=== PATIENT | male | born 1985 | race Caucasian/White ===

== ENCOUNTER 2017-05-01 21:16 | Emergency (ER) | payer BC ==
[2017-05-01 21:45] VITALS: BP 163/83
[2017-05-01] MEDS ORDERED: Ibuprofen 800 MG Tab PO ONE (23:18)
--- NOTE | 2017-05-01 23:44 | EDM.PDOC ---
ED HPI GENERAL MEDICAL PROBLEM - General Chief Complaint: Genitourinary Problem Stated Complaint: TESTICULAR PAIN BLOOD IN STOOL PAIN IN URINATION Time Seen by Provider: 05/01/17 22:05 Source of Information: Reports: Patient History Limitations: Reports: No Limitations - History of Present Illness INITIAL COMMENTS - FREE TEXT/NARRATIVE: The patient says this all started about 1pm today. He had right testicle pain and then he had burning with urination. He is not voiding all the way. He has no discharge. He also has a fever and chills. He has body aches. He has not been sexually active for 6 months. He denies any ranches. He has no abdominal pain, nausea or vomiting. He recently started the Sai's diet. He also had blood in his stool today. He has no rectal pain. Onset: Gradual Duration: Hour(s): Location: Reports: Other (Right testicle) Quality: Reports: Sharp Severity: Moderate Improves with: Reports: None Worsens with: Reports: Movement Associated Symptoms: Reports: Fever/Chills. Denies: Confusion, Chest Pain, Cough, Nausea/Vomiting, Shortness of Breath - Related Data Allergies Allergy/AdvReac Type Severity Reaction Status Date / Time morphine Allergy Nausea Verified 05/01/17 21:45 Home Meds: Home Meds Nitrofurantoin Rowan/Macrocryst [Macrobid] 100 mg PO BID #10 cap 05/02/17 [Rx] Past Medical History - Past Health History Medical/Surgical History: Denies Medical/Surgical History Cardiovascular History: Reports: High Cholesterol - Past Surgical History GI Surgical History: Reports: Appendectomy Social & Family History - Tobacco Use Smoking Status *Q: Unknown Ever Smoked Years of Tobacco use: 6 Packs/Tins Daily: 1 - Caffeine Use Caffeine Use: Reports: Energy Drinks, Soda - Recreational Drug Use Recreational Drug Use: No ED ROS GENERAL - Review of Systems Review Of Systems: See Below Constitutional: Reports: Fever, Chills HEENT: Reports: No Symptoms Respiratory: Reports: No Symptoms Cardiovascular: Reports: No Symptoms Endocrine: Reports: No Symptoms GI/Abdominal: Reports: No Symptoms : Reports: Dysuria, Other (Right testicle pain) Musculoskeletal: Reports: Muscle Pain Skin: Reports: No Symptoms ED EXAM, GI/ABD - Physical Exam Exam: See Below Exam Limited By: No Limitations General Appearance: Alert, No Apparent Distress Ears: Normal External Exam Nose: Normal Inspection Head: Atraumatic, Normocephalic Neck: Normal Inspection Respiratory/Chest: No Respiratory Distress, Lungs Clear, Normal Breath Sounds Cardiovascular: Regular Rate, Rhythm, No Edema, No Murmur GI/Abdominal Exam: Soft, Non-Tender, No Organomegaly, No Mass (Male) Exam: Other (Pain upon palpation and edema to the right testicle and above the testicle) Rectal (Males) Exam: Other (No active bleeding. There is some small external hemorrhoids) Course - Vital Signs Last Recorded V/S: Last Vital Signs Temp 100.3 F 05/01/17 21:39 Pulse 126 H 05/01/17 21:39 Resp 18 05/01/17 21:39 BP 163/83 H 05/01/17 21:39 Pulse Ox 100 05/01/17 21:39 - Orders/Labs/Meds Orders: Active Orders 24 hr Category Date Time Status Scrotum and Contents [US] Stat Exams 05/01/17 22:14 Taken CULTURE URINE [] Stat Lab 05/01/17 22:05 Received Labs: Laboratory Tests 05/01/17 05/01/17 05/01/17 Range/Units 22:00 22:30 22:30 WBC 12.09 H (4.23-9.07) K/mm3 RBC 5.24 (4.63-6.08) M/mm3 Hgb 16.5 (13.7-17.5) gm/L Hct 47.2 (40.1-51.0) % MCV 90.1 (79.0-92.2) fl MCH 31.5 (25.7-32.2) pg MCHC 35.0 (32.2-35.5) g/dl RDW Std Deviation 42.3 (35.1-43.9) fL Plt Count 176 (163-337) K/mm3 MPV 10.8 (9.4-12.3) fl Neut % (Auto) 79.8 H (34.0-67.9) % Lymph % (Auto) 13.2 L (21.8-53.1) % Rowan % (Auto) 5.8 (5.3-12.2) % Eos % (Auto) 0.9 (0.8-7.0) Baso % (Auto) 0.2 (0.1-1.2) % Neut # (Auto) 9.65 H (1.78-5.38) K/mm3 Lymph # (Auto) 1.59 (1.32-3.57) K/mm3 Rowan # (Auto) 0.70 (0.30-0.82) K/mm3 Eos # (Auto) 0.11 (0.04-0.54) K/mm3 Baso # (Auto) 0.03 (0.01-0.08) K/mm3 Sodium 138 (136-145) mEq/L Potassium 3.6 (3.5-5.1) mEq/L Chloride 101 (98-107) mEq/L Carbon Dioxide 26 (21-32) mEq/L Anion Gap 14.6 (5-15) BUN 26 H (7-18) mg/dL Creatinine 1.1 (0.7-1.3) mg/dL Est Cr Clr Drug Dosing 131.32 mL/min Estimated GFR (MDRD) > 60 (>60) mL/min BUN/Creatinine Ratio 23.6 H (14-18) Glucose 104 (74-106) mg/dL Calcium 9.0 (8.5-10.1) mg/dL Total Bilirubin 0.4 (0.2-1.0) mg/dL AST 24 (15-37) U/L ALT 39 (16-63) U/L Alkaline Phosphatase 67 (46-116) U/L Total Protein 7.8 (6.4-8.2) g/dl Albumin 3.8 (3.4-5.0) g/dl Globulin 4.0 gm/dL Albumin/Globulin Ratio 1.0 (1-2) Urine Color Yellow (Yellow) Urine Appearance Slt cloudy H (Clear) Urine pH 6.5 (5.0-8.0) Ur Specific [place] 1.015 (1.005-1.030) Urine Protein Trace H (Negative) Urine Glucose (UA) Negative (Negative) Urine Ketones 1+ H (Negative) Urine Occult Blood 3+ H (Negative) Urine Nitrite Negative (Negative) Urine Bilirubin Negative (Negative) Urine Urobilinogen 0.2 (0.2-1.0) Ur Leukocyte Esterase 3+ H (Negative) Urine RBC >100 H (0-5) /hpf Urine WBC >100 H (0-5) /hpf Urine WBC Clumps Few (NOT SEEN) /hpf Ur Epithelial Cells 0-5 (0-5) /hpf Urine Bacteria Moderate H (FEW) /hpf Urine Mucus Not seen (FEW) /hpf Meds: Medications Discontinued Medications Generic Name Dose Route Start Last Admin Trade Name Donavan PRN Reason Stop Dose Admin Ibuprofen 800 mg 05/01/17 23:18 05/01/17 23:34 Motrin PO 05/01/17 23:19 800 mg ONETIME ONE Administration - Re-Assessments/Exams Free Text/Narrative Re-Assessment/Exam: 05/01/17 23:46 I ordered a UA, labs, and an US of his scrotum. 05/01/17 23:46 His WBC was elevated at 12.09. His CMP looks good. His UA shows a UTI. I am concerned he may have epididimytis. I am waiting for the US report. I gave him some motrin for the fever and pain. 05/02/17 00:19 His US shows nothing acute. I will get him on some macrobid. Departure - Departure Time of Disposition: 00:20 Disposition: Home, Self-Care 01 Condition: Good Clinical Impression: UTI, Urinary tract infectious disease - Discharge Information Prescriptions: Nitrofurantoin Rowan/Macrocryst [Macrobid] 100 mg PO BID #10 cap Referrals: Lanette Jiménez PA [[facility] [employer] [facility]] - 1 Week Forms: ED Department Discharge, ED Return to Work/School Form Additional Instructions: Take the macrobid 2 times per day for 5 days. Drink plenty of fluids. Take tylenol or motrin for any fever. - My Orders Last 24 Hours: My Active Orders 05/01/17 22:05 CULTURE URINE [RM] Stat 05/01/17 22:14 Scrotum and Contents [US] Stat - Assessment/Plan Last 24 Hours: My Active Orders 05/01/17 22:05 CULTURE URINE [RM] Stat 05/01/17 22:14 Scrotum and Contents [US] Stat
--- NOTE | 2017-05-02 08:12 | US ---
Testicular ultrasound: Multiple real-time images of the testicles were obtained. Comparison: No previous study. Testicles have a homogeneous ultrasound appearance. No intratesticular abnormality is identified. Both venous and arterial blood flow are seen within both testicles. Small epididymal cyst noted on both sides measuring about 5 mm. Small left-sided hydrocele is noted. Slightly prominent tubular vessels noted on the left side suspicious for small varicocele. Measurements: Right testicle: 4.1 x 2.5 x 3.7 cm Left testicle: 5.0 x 3.0 x 4.1 cm Impression: 1. Probable small varicocele on the left side. 2. No testicular abnormality is seen. 3. Other incidental findings as noted above. Diagnostic code #2 I agree with preliminary report issued by [facility] (ad report finalized on 05/02/17, 12:49 AM Central Time)
== END 2017-05-02 00:26 | disposition home or self-care (01) ==
LOC: JD.ED 21:16
DX: N39.0 Urinary tract infection, site not specified (principal); B96.20 Unspecified Escherichia coli [E. coli] as the cause of diseases classified elsewhere; E78.00 Pure hypercholesterolemia, unspecified; Z90.49 Acquired absence of other specified parts of digestive tract; Z88.5 Allergy status to narcotic agent
CPT/HCPCS: 36415; 76870; 80053; 81001; 85025; 87086; 87088; 87186; 93975; 99284; A9270; 99283